=== PATIENT | female | born 2005 | race Caucasian/White ===

== ENCOUNTER 2024-04-04 19:58 | Emergency (ER) | payer OTHER, SELFPAY ==
[2024-04-04 20:00] VITALS: BP 124/92
[2024-04-04 20:27] VITALS: BP 122/83
[2024-04-04] MEDS: NSS 500 IV (20:32)
[2024-04-04] MEDS: MORPHINE SULFATE 2 MG IV (20:33)
[2024-04-04] MEDS: TORADOL 15 MG IV (20:33)
[2024-04-04 20:35] VITALS: BMI 19.6
[2024-04-04 20:57] LABS: % Basophils 0.4 % (0-2); % Eosinophils 0.7 % (0-6); % Immature Granulocytes 0.5 % (0-0.5); % Lymphocytes 16.3 % (20.5-51.1); % Monocytes 8.8 % (1.7-9.3); % Neutrophils 73.3 % (42.2-75.2); Absolute Basophils 0.1 10^3/uL (0-0.2); Absolute Eosinophils 0.1 10^3/uL (0-0.7); Absolute Immature Granulocytes 0.1 10^3/uL (0-0.05); Absolute Monocytes 1.1 10^3/uL (0.1-0.6); Absolute Neutrophils 9.1 10^3/uL (1.4-6.5); Hematocrit 33.2 % (37.0-47.0); Mean Corp Hgb Conc. 33.1 g/dL (33.0-37.0); Mean Corpuscular Hgb 27.2 pg (27.0-31.0); Mean Platelet Volume 8.9 fL (7.4-10.4); Nucleated Red Blood Cells % 0 %; Platelet Count 341 10^3/uL (130-400); Red Blood Cell Count 4.05 10^6/uL (4.20-5.40); Red Cell Dist. Width 13.8 % (11.5-14.5); White Blood Cell Count 12.5 10^3/uL (4.8-10.8)
[2024-04-04 21:00] VITALS: BP 120/92
[2024-04-04 21:04] LABS: Blood Urea Nitrogen 7 mg/dl (7-17); Calcium 8.9 mg/dl (8.4-10.2); Carbon Dioxide 24 mmol/L (22-30); Chloride 104 mmol/L (98-107); Estimated Creatinine Clearance 110 ml/min; Glucose 98 mg/dl (70-99); Sodium 137 mmol/L (135-145); eGFR > 60.00
--- NOTE | 2024-04-04 21:11 | ED.GENMED ---
History of Present Illness
General
Chief Complaint: Problems
Source: patient
Exam Limitations: none
Time Seen by Provider: 04/04/24 20:15
Nursing documentation reviewed up to this point in time: agreed with
History of Present Illness
History of Present Illness:
Patient status post D&C at [facility] 3 days ago, presents to ED secondary to worsening lower abdominal quadrant cramps sensation along with passage of large clots starting this morning. Denies nausea or vomiting. Denies fever or chills.
Denies dizziness or weakness. Denies chest pain. Denies shortness of breath. Patient states that this was her first and she was approximate 10 weeks .
Review of Systems
Review of Systems
Allergies reviewed?: Yes
All Other Systems: ROS reviewed and negative except as documented in HPI and ROS
Constitutional: Reports no symptoms
EENT: Reports no symptoms
Respiratory: Reports no symptoms
Cardiac: Reports no symptoms
ABD/GI: Reports abdominal pain; Denies nausea or vomiting
: Reports bleeding (w passage of clots)
Musculoskeletal: Reports no symptoms
Skin: Reports no symptoms
Neurological: Reports no symptoms
Phy Exam
Physical Exam
Physical Exam:
Physical Exam
General: mild distress, not acutely ill. afebrile
Head: nc/at. eomi
Neck: supple. normal range of motion.
Heart: s1/s2 regular rate and rhythm, no murmur. equal radial pulses.
Lungs: no acute respiratory distress. clear bilaterally
Abdomen: normal bowel sounds. moderate lower abdominal tenderness to palpation. no distention
: REBECA Meier, at bedside: mild blood noted at vaginal vault with clots.
Neuro: alert and oriented. no focal neurological deficits
Skin: no rash
Psychiatric: well kept. interactive and cooperative
Extremities: no edema. no calf tenderness.
Course
Orders/Labs/Results
Orders:
Orders
04/04/24 20:22
0.9% Sodium Chloride 500 ml [Nss] 500 ml IV BOLUS
Ketorolac [Toradol] 15 mg .ROUTE .STK-MED ONE
Ketorolac [Toradol] 15 mg IV NOW STA
Morphine Sulfate 2 mg .ROUTE .STK-MED ONE
Morphine Sulfate 2 mg IV NOW STA
US Pelvis W Transvag Combined Urgent
Comment:
Reason For Exam: vaginal bleeding, s/p D&C
04/04/24 20:25
Type+Screen Urgent
Basic Metabolic Panel Urgent
Complete Blood Count/With Diff Urgent
HCG, Beta Quantitative [Beta HCG Quantitative] Urgent
Is this a screen?: No
04/04/24 22:47
ABO2 Urgent
BBK Wristband Number:
Associate notified that ABO2 has been ordered: [id number]
Date: 04/04/24
Time: 20:47
Rn Lpn Cna ID: [id number]
04/04/24 23:23
* Blood Bank Products Urgent
Blood Bank Products: *Rhogam - Full Dose
Quantity: 300mg
Transfuse Today: Yes
Reason: Other
Other reason: Vaginal bleeding/miscarriage
Rho (D) Immune Globulin [Rhogam] 300 mcg IM ONCE ONE
04/04/24 23:28
Rhogam [* Blood Bank Products] Urgent
Blood Bank Products: *Rhogam - Full Dose
Quantity: 1
Transfuse Today: Yes
Reason: Other
Other reason: Rh(-) vaginal bleeding
Rho (D) Immune Globulin [Rhogam] 300 mcg IM ONCE ONE
Abnormal Lab Results
04/04/24
20:25
WBC 12.5 H 10^3/uL
(4.8-10.8)
RBC 4.05 L 10^6/uL
(4.20-5.40)
Hgb 11.0 L g/dL
(12.0-16.0)
Hct 33.2 L %
(37.0-47.0)
Abs Immat Gran (auto) 0.1 H 10^3/uL
(0-0.05)
Absolute Neuts (auto) 9.1 H 10^3/uL
(1.4-6.5)
Absolute Monos (auto) 1.1 H 10^3/uL
(0.1-0.6)
Lymphocytes % 16.3 L %
(20.5-51.1)
Creatinine 0.5 L mg/dL
(0.6-1.0)
04/04/24 20:25
04/04/24 20:25
Vital Signs
Initial and Last Documented VS:
Initial Vital Signs
Temp Pulse Resp BP Pulse Ox
98.7 F 112 22 124/92 98
04/04/24 20:00 04/04/24 20:00 04/04/24 20:00 04/04/24 20:00 04/04/24 20:00
Last Documented Vital Signs
Temp Pulse Resp BP Pulse Ox
98.7 F 112 22 117/72 100
04/04/24 20:00 04/04/24 20:00 04/04/24 20:00 04/04/24 22:00 04/04/24 22:30
Information
Weeks gestation: N/A
Location: N/A
MDM/Problems Addressed
MDM/Problems Addressed:
US report reviewed and discussed with personal development coach corporate real estate manager physician, . Findings are expected from recent procedure. Feels that patient can f/u with her own corporate real estate manager physician as outpatient, with recommendation to take motrin.
Awaiting blood type to determine administration of Rhogam
Rhogam given prior to discharge
*Critical Care Note
Total Time (30-74mins, 75-104mins- exclusive of procedures): Not Applicable
ED Attending Note
-
Portions of this chart may have been created with voice recognition software.� Occasional wrong word or��sound alike� substitutions may have occurred due to the inherent limitations of voice recognition software.
Discharge Plan
Departure
Patient Disposition: Home (Routine Discharge)
Date of Disposition: 04/04/24
Time of Disposition: 23:24
Patient with high blood pressure during this ER visit?: Yes
Discharge Problem:
Post-op bleeding
Instructions: Bleeding After Surgery
Referrals:
Clifford King CRNP [Family Provider] -
Activity Restrictions/Additional Instructions:
As discussed, please follow-up with your [employer] physician for further evaluation and treatment.
Interventions
Interventions:
*Risk Screen - Suicide Last Done: 04/04/24 20:35
*General Assessment Last Done: 04/04/24 20:35
*Neglect/Abuse Screening Last Done: 04/04/24 20:35
ED- Fall Risk Assessment Last Done: 04/04/24 22:30
*ED COVID-19 Vaccine History Last Done: 04/04/24 20:35
*Nursing Disposition Last Done: 04/05/24 00:14
ED-Female Genitourinary Assessment Last Done: 04/04/24 22:30
Discharge Date and Time
Discharge Date/Time: 04/05/24 00:15
Print Language: CANADIAN
[2024-04-04 22:00] VITALS: BP 117/72
[2024-04-04] MEDS: RHOGAM 300 MCG IM (23:56)
== END 2024-04-05 00:15 | disposition home or self-care (01) ==
LOC: EMR 19:58
PROVIDERS: EMERGENCY PHYSICIAN Emergency Medicine; FAMILY PHYSICIAN Chiropractor
DX: N99.820 Postprocedural hemorrhage of a genitourinary system organ or structure following a genitourinary system procedure (principal); R03.0 Elevated blood-pressure reading, without diagnosis of hypertension
CPT/HCPCS: 99284; 96374; 96375; 96361; 96372; 76830; 76856; 80048; 84702; 85025; 86850; 86900; 86901; J2790